=== PATIENT | female | born 1985 | race Caucasian/White ===

== ENCOUNTER → 2016-06-02 | Outpatient (CLI) | payer MEDICAID ==
[~2016-06-02] MED LIST: /ADVA50050 INH; BACT400T PO; Bentyl PO; IMIT50TA PO; IMODIUM AD PO; KEPP500T4 PO; MAGICMW PO; META800T82 PO; MINI1CAP PO; MULTIVIT PO; PREDPOW10 PO; PROZ40CA PO; SKEL800T5 PO; SYNT25TA PO; TOPA25TA PO; VALT500T PO; VANC12CA PO; VICO5TAB PO; XANA0.5T PO; [UNRECOGNIZED DRUG - OTHER]
== END ==
LOC: M OUTALCOH 09:59
PROVIDERS: ATTEND Psychiatry & Neurology Psychiatry
DX: F12.10 Cannabis abuse, uncomplicated (principal)

== ENCOUNTER 2016-06-13 17:28 | Emergency (ER) | payer MEDICAID, OTHER ==
--- NOTE | 2016-06-13 19:50 | REPUSA ---
CLINICAL HISTORY: Pain. COMMENTS: Real time sonography with duplex doppler of the right lower extremity was performed with attention to the major deep venous structures. Evaluation reveals the right common femoral, superficial femoral and popliteal veins to be completely compressible without intraluminal thrombus. There is normal spontaneous phasic flow and augmentation . The greater saphenous/common femoral vein junction is patent. IMPRESSION: No evidence of DVT in right lower extremity. Thank you for your kind referral of this patient.
[2016-06-13] MEDS ORDERED: KETOROLAC 30 MG/ML VIAL (J1885) As Ordered ONE (20:16)
[2016-06-13] MEDS ORDERED: predniSONE 20 MG TAB As Ordered ONE (20:16)
--- NOTE | 2016-06-13 22:31 | EDDOCDS ---
Physician Documentation [facility] Name: Dinora Jimenez Age: 30 yrs Sex: Female : 1985 Arrival Date: 06/13/2016 Time: 17:28 Bed TR7 Private MD: Alva Hobbs Disposition: 06/13 22:07 Critical Care: Critical care not applicable. le Disposition: 06/13/16 22:02 Discharged to Home/Self Care. Impression: Pain in right hip, Pain in right foot. - Condition is Stable. - Discharge Instructions: Arthralgia, Pain Without a Known Cause. - Prescriptions for meloxicam 15 mg Oral tablet - take 1 tablet by ORAL route once daily; 30 tablet. - Work Release Form - 1 day, Medication Reconciliation, Local Pharmacy Hours form. - Follow up: [facility]; When: Call to arrange an appointment; Reason: Recheck today's complaints, Continuance of care. Follow up: [facility]; When: 1 week; Reason: Recheck today's complaints, Continuance of care, If pain is not improving. - Problem is new. - Symptoms have improved. - Notes: Return to the ED for worsening symptoms or other concerns Historical: - Allergies: Ciprofloxacin; - Home Meds: 1. gabapentin 300 mg Oral cap 1 cap 3 times per day 2. Lamictal 100 mg Oral tab 1 tab 2 times per day - PMHx: Bipolar disorder; opiate addiction; ran out of her gabapentin; - PSHx: Hernia repair- Umbilical; ovarian cyst removed - right; Appendectomy; - Social history: Smoking status: Patient uses tobacco products, light tobacco smoker. No barriers to communication noted. - Family history: Not pertinent. - : The pt / caregiver states he / she is not on anticoagulants. Home medication list is obtained from the patient. - Exposure Risk Screening:: None identified. 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 5 in. (165.10 cm) (R); Pain 8/10; 19:38 BP 103 / 57; Pulse 75; Resp 18 S; Temp 96.7(O); Pulse Ox 99% on R/A; Pain 9/10; gr2 22:24 BP 102 / 55; Pulse 58; Resp 16; Pulse Ox 98% ; Pain 4/10; cjh 17:30 Body Mass Index 19.64 (53.52 kg, 165.10 cm) gr2 MDM: 17:51 Misc. Nursing Order ordered. ar2 17:52 US Lower Extremity R/O DVT Ordered. EDMS 19:59 [facility] Payment Agreement was scanned into [employer] and attached to record. gb 20:06 ketorolac 60 mg IM once ordered. le 20:06 predniSONE 60 mg PO once; administer with food or milk ordered. le 20:07 Hip,AP,LAT to include Pelvis Ordered. EDMS 20:27 Financial registration complete. gb Administered Medications: 20:31 Drug: ketorolac 60 mg [ketorolac 30 mg/mL (1 mL) injection solution (2 mL)] Route: IM; ld5 Site: left gluteus; 20:31 Drug: predniSONE 60 mg [prednisone 20 mg tablet (3 tabs)] Route: PO; ld5 Signatures: Dispatcher [employer] EDIA Angela Lee, Reg Reg gb Leatha Parr, COMMERCIAL LOAN PROCESSOR COMMERCIAL LOAN PROCESSOR Tim Rojas PA-C PACarmelina ar2 Xiao Barry,RN RN Karla Gordon RN ld5 The chart was reviewed and I authenticate all verbal orders and agree with the evaluation and treatment provided.Attachments: 19:59 [facility] Payment Agreement gb MTDD
--- NOTE | 2016-06-13 22:31 | EDDOCDS ---
Nurse's Notes [facility] Name: Dinora Jimenez Age: 30 yrs Sex: Female : 1985 Arrival Date: 06/13/2016 Time: 17:28 Bed TR7 Private MD: Alva Hobbs Diagnosis: Pain in right hip;Pain in right foot Presentation: 06/13 17:43 Presenting complaint: Patient states: my right foot is purple and cold and it hurts, my [facility] right hip, I have Lupus, seems to be half in and half out I'm in a lot of pain. Please put in my chart that I'm not seeking opiates of any kind. Adult Sepsis Screening: The patient does not have new or worsening altered mentation. Patient's respiratory rate is less than 22. Systolic blood pressure is greater than 100. Patient has a qSOFA score of 0- Negative Sepsis Screen. Suicide/Homicide risk assessment- the patient denies having any suicidal and/or homicidal ideations and does not present with any other emotional, behavioral or mental health complaints. Status: Patient is not a service crew leader or dependent. Transition of care: patient was not received from another setting of care. 17:43 Acuity: MEENA Level 3 [facility] 17:43 Method Of Arrival: Walkin/Carried/Asstd [facility] Triage Assessment: 17:45 General: Appears distressed, uncomfortable. Pain: Location: right foot Pain currently [facility] is 9 out of 10 on a pain scale. HIV screening NA for this visit Offered previously. Respiratory: Airway is patent Respiratory effort is even, unlabored, Respiratory pattern is regular, symmetrical. Derm: Skin is pink, warm & dry. Musculoskeletal: 19:38 I have visited this patient for a triage reassessment, waiting in wheelchair in waiting dsf area, vital signs reassessed, see vital signs entry. Patient states still in a lot of pain, reassurance offered and informed regarding potential wait time and waiting order. 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 gabapentin 300 mg Oral cap 1 cap 3 times per day 2. Lamictal 100 mg Oral tab 1 tab 2 times per day - PMHx: Bipolar disorder; opiate addiction; ran out of her gabapentin; - PSHx: Hernia repair- Umbilical; ovarian cyst removed - right; Appendectomy; - Social history: Smoking status: Patient uses tobacco products, light tobacco smoker. No barriers to communication noted. - Family history: Not pertinent. - : The pt / caregiver states he / she is not on anticoagulants. Home medication list is obtained from the patient. - Exposure Risk Screening:: None identified. Screenin:24 Screening information is obtained from the patient. Fall risk: No risks identified. [facility] Assistance ADL's: requires no assistance with activities of daily living. Abuse/DV Screen: The patient / caregiver reports he/she is: not in a situation that causes fear, pain or injury. Nutritional screening: No deficits noted. Advance Directives: There is no active DNR order. home support is adequate. Assessment: 18:00 General: doppler pulses of right foot obtained, clear, marked at sites dp and pt . dsf 20:31 General: Pt denies chance of . Pt medicated per orders for pain. Pt assisted ld5 to bathroom. Pt able to move self around well. Returned to room. Awaiting xray. Will continue to monitor. 22:24 General: Appears in no apparent distress, comfortable, Behavior is appropriate for age, [facility] cooperative, reviewed discharge instructions with patient who states she feels much better although still reporting pain 4/10. States she is ready for DC and happy to go home and get some sleep. Denies further needs, assisted to curb via wheelchair. Vital Signs: 17:30 BP 106 / 72; Pulse 65; Resp 18 S; Temp 96.9(O); Pulse Ox 95% on R/A; Weight 53.52 kg gr2 (R); Height 5 ft. 5 in. (165.10 cm) (R); Pain 8/10; 19:38 BP 103 / 57; Pulse 75; Resp 18 S; Temp 96.7(O); Pulse Ox 99% on R/A; Pain 9/10; gr2 22:24 BP 102 / 55; Pulse 58; Resp 16; Pulse Ox 98% ; Pain 4/10; [facility] 17:30 Body Mass Index 19.64 (53.52 kg, 165.10 cm) gr2 Vitals: 17:30 Log In Time: June 13, 2016 at 17:30. gr2 19:38 Log In Time: June 13, 2016 at 19:38. gr2 ED Course: 17:30 Patient visited by Cristal Campbell. gr2 17:30 Alva Hobbs is Private Physician. gr2 17:30 Patient moved to Waiting gr2 17:32 Patient visited by Cristal Campbell. gr2 17:33 Patient moved to Pre RCE gr2 17:45 Triage Initiated cjh 17:50 Patient moved to PD2 / 27 hs1 18:14 Patient moved to Pre RCE jrd 18:18 Patient moved to Ultrasound hgl 18:30 Patient moved to Pre RCE br3 19:40 Patient visited by Cristal Campbell. gr2 19:49 Patient moved to Triage 1 dsf 19:55 Leatha Parr FNP [facility]. le 19:59 [facility] Payment Agreement was scanned into [employer] and attached to record. gb 20:01 Patient visited by Leatha Parr FNP. le 20:01 Patient visited by Leatha Parr FNP. le 20:10 Patient moved to PR2 / ld5 20:23 US Lower Extremity R/O DVT Returned. EDMS 20:32 Patient visited by Karla Arteaga,LEESA. ld5 21:06 Patient moved to Radiology tmb 21:13 Patient moved to PR2 / 26 tmb 22:01 [facility] is Referral Physician. le 22:01 [facility] is Referral Physician. le 22:23 Xiao Barry,LEESA is Primary Nurse. [facility] 22:24 The patient / caregiver is instructed regarding the plan of care and ED course. [facility] 22:24 No IV's were initiated during this patient's visit. No procedures done that require [facility] assistance. 22:26 Patient moved to TR7 dsf Administered Medications: 20:31 Drug: ketorolac 60 mg [ketorolac 30 mg/mL (1 mL) injection solution (2 mL)] Route: IM; ld5 Site: left gluteus; 20:31 Drug: predniSONE 60 mg [prednisone 20 mg tablet (3 tabs)] Route: PO; ld5 Order Results: Radiology Order: US Lower Extremity R/O DVT Test: US Lower Extremity R/O DVT REASON FOR EXAMINATION: r/o dvt; ; CLINICAL HISTORY: Pain.; COMMENTS:; Real time sonography with duplex doppler of the right lower extremity was performed with attention to; the major deep venous structures.; Evaluation reveals the right common femoral, superficial femoral and popliteal veins to be completely; compressible without intraluminal thrombus. There is normal spontaneous phasic flow and augmentation; . The greater saphenous/common femoral vein junction is patent.; IMPRESSION:; No evidence of DVT in right lower extremity.; Thank you for your kind referral of this patient.; ; Outcome: 22:02 Discharge ordered by Provider. le 22:24 Discharge Assessment: Patient awake, alert and oriented x 3. No cognitive and/or [facility] functional deficits noted. Patient verbalized understanding of disposition instructions. patient administered narcotics - no. The following High Risk Discharge criteria are identified: None. Discharged to home ambulatory, via wheelchair. Condition: good Condition: stable Condition: improved. Discharge instructions given to patient, Instructed on discharge instructions, follow up and referral plans. medication usage, Demonstrated understanding of instructions, medications, Pt was receptive of discharge instructions/ teaching. Prescriptions given X 1. Ultrasound Study completed. Property :Personal belongings accompany Pt. 22:30 Patient left the ED. [facility] Signatures: Dispatcher [employer] EDMS Angela Lee, Reg Reg gb Leatha Parr, MARBLE MECHANIC HELPER MARBLE MECHANIC HELPER Miriam Pitts br3 Karla Arteaga,RN RN ld5 Laurie Moses RN RN hs1 Nisha Hicks RN RN Xiao Bee RN RN [facility] Ly, Cr hgl Cristal Campbell gr2 [employer] Joseph, PCA HAT CHECKER jrfrank Corrections: (The following items were deleted from the chart) 17:46 17:43 Presenting complaint: Patient states: my right foot is purple and cold and it [facility] hurts, my right hip, I have Lupus, seems to be half in and half out I'm in a lot of pain [facility] MTDD
--- NOTE | 2016-06-14 01:54 | REP ---
Clinical: Trauma. Technique: AP view of the pelvis with neutral and frog lateral views of the right hip. Findings: No acute fracture or dislocation. Hip joints appear relatively symmetric. Surrounding soft tissues are unremarkable. Impression: No acute fracture or dislocation. Signed by George Vaca MD 06/14/2016 01:45 A
--- NOTE | 2016-06-15 23:31 | EDDOCDS ---
Nurse's Notes [facility] Name: Dinora Jimenez Age: 30 yrs Sex: Female : 1985 Arrival Date: 06/13/2016 Time: 17:28 Bed TR7 Private MD: Alva Hobbs Diagnosis: Pain in right hip;Pain in right foot Presentation: 06/13 17:43 Presenting complaint: Patient states: my right foot is purple and cold and it hurts, my [facility] right hip, I have Lupus, seems to be half in and half out I'm in a lot of pain. Please put in my chart that I'm not seeking opiates of any kind. Adult Sepsis Screening: The patient does not have new or worsening altered mentation. Patient's respiratory rate is less than 22. Systolic blood pressure is greater than 100. Patient has a qSOFA score of 0- Negative Sepsis Screen. Suicide/Homicide risk assessment- the patient denies having any suicidal and/or homicidal ideations and does not present with any other emotional, behavioral or mental health complaints. 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 Transition of care: patient was not received from another setting of care. 17:43 Acuity: MEENA Level 3 [facility] 17:43 Method Of Arrival: Walkin/Carried/Asstd [facility] Triage Assessment: 17:45 General: Appears distressed, uncomfortable. Pain: Location: right foot Pain currently [facility] is 9 out of 10 on a pain scale. HIV screening NA for this visit Offered previously. Respiratory: Airway is patent Respiratory effort is even, unlabored, Respiratory pattern is regular, symmetrical. Derm: Skin is pink, warm & dry. Musculoskeletal: 19:38 I have visited this patient for a triage reassessment, waiting in wheelchair in waiting dsf area, vital signs reassessed, see vital signs entry. Patient states still in a lot of pain, reassurance offered and informed regarding potential wait time and waiting order. 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 gabapentin 300 mg Oral cap 1 cap 3 times per day 2. Lamictal 100 mg Oral tab 1 tab 2 times per day - PMHx: Bipolar disorder; opiate addiction; ran out of her gabapentin; - PSHx: Hernia repair- Umbilical; ovarian cyst removed - right; Appendectomy; - Social history: Smoking status: Patient uses tobacco products, light tobacco smoker. No barriers to communication noted. - Family history: Not pertinent. - : The pt / caregiver states he / she is not on anticoagulants. Home medication list is obtained from the patient. - Exposure Risk Screening:: None identified. Screenin:24 Screening information is obtained from the patient. Fall risk: No risks identified. [facility] Assistance ADL's: requires no assistance with activities of daily living. Abuse/DV Screen: The patient / caregiver reports he/she is: not in a situation that causes fear, pain or injury. Nutritional screening: No deficits noted. Advance Directives: There is no active DNR order. home support is adequate. Assessment: 18:00 General: doppler pulses of right foot obtained, clear, marked at sites dp and pt . dsf 20:31 General: Pt denies chance of . Pt medicated per orders for pain. Pt assisted ld5 to bathroom. Pt able to move self around well. Returned to room. Awaiting xray. Will continue to monitor. 22:24 General: Appears in no apparent distress, comfortable, Behavior is appropriate for age, [facility] cooperative, reviewed discharge instructions with patient who states she feels much better although still reporting pain 4/10. States she is ready for DC and happy to go home and get some sleep. Denies further needs, assisted to curb via wheelchair. Vital Signs: 17:30 BP 106 / 72; Pulse 65; Resp 18 S; Temp 96.9(O); Pulse Ox 95% on R/A; Weight 53.52 kg gr2 (R); Height 5 ft. 5 in. (165.10 cm) (R); Pain 8/10; 19:38 BP 103 / 57; Pulse 75; Resp 18 S; Temp 96.7(O); Pulse Ox 99% on R/A; Pain 9/10; gr2 22:24 BP 102 / 55; Pulse 58; Resp 16; Pulse Ox 98% ; Pain 4/10; [facility] 17:30 Body Mass Index 19.64 (53.52 kg, 165.10 cm) gr2 Vitals: 17:30 Log In Time: June 13, 2016 at 17:30. gr2 19:38 Log In Time: June 13, 2016 at 19:38. gr2 ED Course: 17:30 Patient visited by Cristal Campbell. gr2 17:30 Alva Hobbs is Private Physician. gr2 17:30 Patient moved to Waiting gr2 17:32 Patient visited by Cristal Campbell. gr2 17:33 Patient moved to Pre RCE gr2 17:45 Triage Initiated cjh 17:50 Patient moved to PD2 / 27 hs1 18:14 Patient moved to Pre RCE jrd 18:18 Patient moved to Ultrasound hgl 18:30 Patient moved to Pre RCE br3 19:40 Patient visited by Cristal Campbell. gr2 19:49 Patient moved to Triage 1 dsf 19:55 Leatha Parr FNP is [facility]. le 19:59 [facility] Payment Agreement was scanned into [employer] and attached to record. gb 20:01 Patient visited by Leatha Parr FNP. le 20:01 Patient visited by Leatha Parr FNP. le 20:10 Patient moved to PR2 / ld5 20:23 Lower Extremity R/O DVT Returned. EDMS 20:32 Patient visited by Karla Arteaga,LEESA. ld5 21:06 Patient moved to Radiology tmb 21:13 Patient moved to PR2 / 26 tmb 22:01 [facility] is Referral Physician. le 22:01 [facility] is Referral Physician. le 22:23 Xiao Barry,LEESA is Primary Nurse. [facility] 22:24 The patient / caregiver is instructed regarding the plan of care and ED course. [facility] 22:24 No IV's were initiated during this patient's visit. No procedures done that require [facility] assistance. 22:26 Patient moved to TR7 dsf 02 02:04 Hip,AP,LAT to include Pelvis Returned. EDMS 10:48 T-Sheet-- Draft Copy was scanned into [employer] and attached to record. gb 10:48 Radiology Report was scanned into [employer] and attached to record. gb Administered Medications: 06/13 20:31 Drug: ketorolac 60 mg [ketorolac 30 mg/mL (1 mL) injection solution (2 mL)] Route: IM; ld5 Site: left gluteus; 20:31 Drug: predniSONE 60 mg [prednisone 20 mg tablet (3 tabs)] Route: PO; ld5 Order Results: Radiology Order: US Lower Extremity R/O DVT Test: US Lower Extremity R/O DVT REASON FOR EXAMINATION: r/o dvt; ; CLINICAL HISTORY: Pain.; COMMENTS:; Real time sonography with duplex doppler of the right lower extremity was performed with attention to; the major deep venous structures.; Evaluation reveals the right common femoral, superficial femoral and popliteal veins to be completely; compressible without intraluminal thrombus. There is normal spontaneous phasic flow and augmentation; . The greater saphenous/common femoral vein junction is patent.; IMPRESSION:; No evidence of DVT in right lower extremity.; Thank you for your kind referral of this patient.; ; Radiology Order: Hip,AP,LAT to include Pelvis Test: Hip,AP,LAT to include Pelvis REASON FOR EXAMINATION: Trauma; Clinical: Trauma.; ; Technique: AP view of the pelvis with neutral and frog lateral views of the; right hip.; ; Findings:; No acute fracture or dislocation. Hip joints appear relatively symmetric.; Surrounding soft tissues are unremarkable.; ; Impression:; No acute fracture or dislocation.; ; ; Signed by; George Vaca MD 06/14/2016 01:45 A; Outcome: 22:02 Discharge ordered by Provider. le 22:24 Discharge Assessment: Patient awake, alert and oriented x 3. No cognitive and/or [facility] functional deficits noted. Patient verbalized understanding of disposition instructions. patient administered narcotics - no. The following High Risk Discharge criteria are identified: None. Discharged to home ambulatory, via wheelchair. Condition: good Condition: stable Condition: improved. Discharge instructions given to patient, Instructed on discharge instructions, follow up and referral plans. medication usage, Demonstrated understanding of instructions, medications, Pt was receptive of discharge instructions/ teaching. Prescriptions given X 1. Ultrasound Study completed. Property :Personal belongings accompany Pt. 22:30 Patient left the ED. [facility] Signatures: Dispatcher [employer] EDMS Angela Lee, Reg Reg gb Leatha Parr, CORD MAKER CORD MAKER Miriam Pitts br3 Karla rAteaga RN RN ld5 Laurie Moses RN RN hs1 Nisha Hicks RN RN dsf Xiao Barry RN RN cjh Ly, Cr hgl Adrian Cristal gr2 [employer] [facility] Joseph, CLARA SPA ASSISTANT MANAGER jrd Corrections: (The following items were deleted from the chart) 17:46 17:43 Presenting complaint: Patient states: my right foot is purple and cold and it cjh hurts, my right hip, I have Lupus, seems to be half in and half out I'm in a lot of pain cj Chart Complete MTDD
--- NOTE | 2016-06-15 23:31 | EDDOCDS ---
Physician Documentation [facility] Name: Dinora Jimenez Age: 30 yrs Sex: Female : 1985 Arrival Date: 06/13/2016 Time: 17:28 Bed TR7 Private MD: Alva Hobbs Disposition: 06/13 22:07 Critical Care: Critical care not applicable. le Disposition: 06/13/16 22:02 Discharged to Home/Self Care. Impression: Pain in right hip, Pain in right foot. - Condition is Stable. - Discharge Instructions: Arthralgia, Pain Without a Known Cause. - Prescriptions for meloxicam 15 mg Oral tablet - take 1 tablet by ORAL route once daily; 30 tablet. - Work Release Form - 1 day, Medication Reconciliation, Local Pharmacy Hours form. - Follow up: [facility]; When: Call to arrange an appointment; Reason: Recheck today's complaints, Continuance of care. Follow up: [facility]; When: 1 week; Reason: Recheck today's complaints, Continuance of care, If pain is not improving. - Problem is new. - Symptoms have improved. - Notes: Return to the ED for worsening symptoms or other concerns Historical: - Allergies: Ciprofloxacin; - Home Meds: 1. gabapentin 300 mg Oral cap 1 cap 3 times per day 2. Lamictal 100 mg Oral tab 1 tab 2 times per day - PMHx: Bipolar disorder; opiate addiction; ran out of her gabapentin; - PSHx: Hernia repair- Umbilical; ovarian cyst removed - right; Appendectomy; - Social history: Smoking status: Patient uses tobacco products, light tobacco smoker. No barriers to communication noted. - Family history: Not pertinent. - : The pt / caregiver states he / she is not on anticoagulants. Home medication list is obtained from the patient. - Exposure Risk Screening:: None identified. 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 5 in. (165.10 cm) (R); Pain 8/10; 19:38 BP 103 / 57; Pulse 75; Resp 18 S; Temp 96.7(O); Pulse Ox 99% on R/A; Pain 9/10; gr2 22:24 BP 102 / 55; Pulse 58; Resp 16; Pulse Ox 98% ; Pain 4/10; cjh 17:30 Body Mass Index 19.64 (53.52 kg, 165.10 cm) gr2 MDM: 17:51 Misc. Nursing Order ordered. ar2 17:52 US Lower Extremity R/O DVT Ordered. EDMS 19:59 [facility] [place] Payment Agreement was scanned into [employer] and attached to record. gb 20:06 ketorolac 60 mg IM once ordered. le 20:06 predniSONE 60 mg PO once; administer with food or milk ordered. le 20:07 Hip,AP,LAT to include Pelvis Ordered. EDMS 20:27 Financial registration complete. gb 06/14 10:48 T-Sheet-- Draft Copy was scanned into [employer] and attached to record. gb 10:48 Radiology Report was scanned into [employer] and attached to record. gb Administered Medications: 06/13 20:31 Drug: ketorolac 60 mg [ketorolac 30 mg/mL (1 mL) injection solution (2 mL)] Route: IM; ld5 Site: left gluteus; 20:31 Drug: predniSONE 60 mg [prednisone 20 mg tablet (3 tabs)] Route: PO; ld5 Signatures: Dispatcher [employer] EDAL Angela Lee, Reg Reg gb Leatha Parr, PASTER SUPERVISOR PASTER SUPERVISOR Tim Rojas PA-C PA-C ar2 Xiao Barry RN RN [facility] Karla Arteaga RN ld5 The chart was reviewed and I authenticate all verbal orders and agree with the evaluation and treatment provided.Attachments: 19:59 [facility] Payment Agreement gb 06/14 10:48 T-Sheet-- Draft Copy gb Chart Complete MTDD
--- NOTE | 2016-06-15 23:31 | EDDOCDS ---
Physician Documentation [facility] Name: Dinora Jimenez Age: 30 yrs Sex: Female : 1985 Arrival Date: 06/13/2016 Time: 17:28 Bed TR7 Private MD: Alva Hobbs Disposition: 06/13 22:07 Critical Care: Critical care not applicable. le Disposition: 06/13/16 22:02 Discharged to Home/Self Care. Impression: Pain in right hip, Pain in right foot. - Condition is Stable. - Discharge Instructions: Arthralgia, Pain Without a Known Cause. - Prescriptions for meloxicam 15 mg Oral tablet - take 1 tablet by ORAL route once daily; 30 tablet. - Work Release Form - 1 day, Medication Reconciliation, Local Pharmacy Hours form. - Follow up: [facility]; When: Call to arrange an appointment; Reason: Recheck today's complaints, Continuance of care. Follow up: [facility]; When: 1 week; Reason: Recheck today's complaints, Continuance of care, If pain is not improving. - Problem is new. - Symptoms have improved. - Notes: Return to the ED for worsening symptoms or other concerns Historical: - Allergies: Ciprofloxacin; - Home Meds: 1. gabapentin 300 mg Oral cap 1 cap 3 times per day 2. Lamictal 100 mg Oral tab 1 tab 2 times per day - PMHx: Bipolar disorder; opiate addiction; ran out of her gabapentin; - PSHx: Hernia repair- Umbilical; ovarian cyst removed - right; Appendectomy; - Social history: Smoking status: Patient uses tobacco products, light tobacco smoker. No barriers to communication noted. - Family history: Not pertinent. - : The pt / caregiver states he / she is not on anticoagulants. Home medication list is obtained from the patient. - Exposure Risk Screening:: None identified. 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 5 in. (165.10 cm) (R); Pain 8/10; 19:38 BP 103 / 57; Pulse 75; Resp 18 S; Temp 96.7(O); Pulse Ox 99% on R/A; Pain 9/10; gr2 22:24 BP 102 / 55; Pulse 58; Resp 16; Pulse Ox 98% ; Pain 4/10; cjh 17:30 Body Mass Index 19.64 (53.52 kg, 165.10 cm) gr2 MDM: 17:51 Misc. Nursing Order ordered. ar2 17:52 US Lower Extremity R/O DVT Ordered. EDMS 19:59 [facility] [place] Payment Agreement was scanned into [employer] and attached to record. gb 20:06 ketorolac 60 mg IM once ordered. le 20:06 predniSONE 60 mg PO once; administer with food or milk ordered. le 20:07 Hip,AP,LAT to include Pelvis Ordered. EDMS 20:27 Financial registration complete. gb 06/14 10:48 T-Sheet-- Draft Copy was scanned into [employer] and attached to record. gb 10:48 Radiology Report was scanned into [employer] and attached to record. gb Administered Medications: 06/13 20:31 Drug: ketorolac 60 mg [ketorolac 30 mg/mL (1 mL) injection solution (2 mL)] Route: IM; ld5 Site: left gluteus; 20:31 Drug: predniSONE 60 mg [prednisone 20 mg tablet (3 tabs)] Route: PO; ld5 Signatures: Dispatcher [employer] EDMT Angela Lee, Reg Reg gb Leatha Parr, LITERARY WRITER LITERARY WRITER Tim Rojas PA-C PA-C ar2 Xiao Barry RN RN [facility] Karla Arteaga RN ld5 The chart was reviewed and I authenticate all verbal orders and agree with the evaluation and treatment provided.Attachments: 19:59 [facility] Payment Agreement gb 06/14 10:48 T-Sheet-- Draft Copy gb Chart Complete MTDD
== END 2016-06-13 22:30 | disposition home or self-care (01) ==
LOC: M ED 17:28
DX: S73.101A Unspecified sprain of right hip, initial encounter (principal); X58.XXXA Exposure to other specified factors, initial encounter; Y92.89 Other specified places as the place of occurrence of the external cause; Y93.89 Activity, other specified; Y99.8 Other external cause status; M79.671 Pain in right foot; F31.9 Bipolar disorder, unspecified; F11.10 Opioid abuse, uncomplicated; F17.210 Nicotine dependence, cigarettes, uncomplicated; Z79.899 Other long term (current) drug therapy; Z88.1 Allergy status to other antibiotic agents
CPT/HCPCS: 73502; 93971; 96372; 99284; J1885

== ENCOUNTER → 2016-06-13 | Outpatient (RCR) | payer MEDICAID | END | disposition home or self-care (01) | LOC: M OUTALCOH 06-08 11:47 | PROVIDERS: ATTEND Psychiatry & Neurology Psychiatry | DX: F12.10 Cannabis abuse, uncomplicated (principal); F17.200 Nicotine dependence, unspecified, uncomplicated ==

== ENCOUNTER → 2016-07-11 | Outpatient (RCR) | payer MEDICAID ==
[~2016-07-11] MED LIST changes: +GABA600T PO; +LAMI1TAB8 PO; +MACR100C3 PO; +TYLE325T5 PO; +ZOFR4TAB3 PO
== END ==
LOC: M OUTALCOH 06-20 10:37
PROVIDERS: ATTEND Psychiatry & Neurology Psychiatry
DX: F12.10 Cannabis abuse, uncomplicated (principal); F17.200 Nicotine dependence, unspecified, uncomplicated

== ENCOUNTER 2016-07-13 15:03 | Emergency (ER) | payer OTHER ==
[~2016-07-13] VITALS: Ht 162.6 cm; Wt 56.7 kg
[~2016-07-13 15:03] MED LIST changes: -GABA600T PO; -LAMI1TAB8 PO; -MACR100C3 PO; -TYLE325T5 PO; -ZOFR4TAB3 PO
[2016-07-13] MEDS ORDERED: LAMI1TAB8 PO (15:27)
[2016-07-13] MEDS ORDERED: GABA600T PO (15:27)
[2016-07-13] MEDS ORDERED: ONDANSETRON 4 MG ORAL DISINTEGRATING TAB (S0181) PO ONE (16:30)
[2016-07-13 17:04] LABS: BASO % 0.5 % (0.0-1.0); EOS # 0.1 K/mm3 (0.0-0.50); EOS % 1.4 % (0.0-3.0); LARGE UNSTAINED CELL # 0.2 K/mm3 (0.0-0.4); LARGE UNSTAINED CELL % 2.3 % (0.0-4.0); LYMPH # 2.2 K/mm3 (1.5-4.5); LYMPH % 32.3 % (24.0-44.0); MEAN CORPUSCULAR HEMOGLOBIN 30.2 pg (27.0-33.0); MEAN CORPUSCULAR HGB CONC 33.1 g/dl (32.0-36.5); MEAN CORPUSCULAR VOLUME 91.1 fl (80.0-96.0); MONO # 0.3 K/mm3 (0.0-0.8); NEUTROPHILS % 58.6 % (36.0-66.0); PLATELET COUNT, AUTOMATED 187 k/mm3 (150-450); RED CELL DISTRIBUTION WIDTH 12.4 % (11.5-14.5); WHITE BLOOD COUNT 6.8 K/mm3 (4.0-10.0)
[2016-07-13 17:20] LABS: ALBUMIN 4.1 GM/DL (3.2-5.2); ALBUMIN/GLOBULIN RATIO 1.71 (1.00-1.93); ALKALINE PHOSPHATASE 64 U/L (45-117); ALT/SGPT 14 U/L (12-78); ANION GAP 6 MEQ/L (8-16); AST/SGOT 15 U/L (15-37); BILIRUBIN,DIRECT 0.2 MG/DL (0.0-0.2); BILIRUBIN,TOTAL 0.4 MG/DL (0.2-1.0); BLOOD UREA NITROGEN 11 MG/DL (7-18); CALCIUM LEVEL 8.9 MG/DL (8.5-10.1); CARBON DIOXIDE LEVEL 28 MEQ/L (21-32); CHLORIDE LEVEL 105 MEQ/L (98-107); CREATININE FOR GFR 0.79 MG/DL (0.55-1.02); GLOMERULAR FILTRATION RATE > 60.0 (>60); GLUCOSE, FASTING 81 MG/DL (70-105); POTASSIUM SERUM 4.2 MEQ/L (3.5-5.1); SODIUM LEVEL 139 MEQ/L (136-145); TOTAL PROTEIN 6.5 GM/DL (6.4-8.2)
--- NOTE | 2016-07-13 17:59 | REP ---
OB ULTRASOUND: HISTORY: Vaginal pain. No priors for comparison. Transvesical and transvaginal imaging was obtained. Multiple sonographic images of the uterus show an anechoic structure within the endometrial cavity with increased echo surrounding it consistent with a decidual reaction. Within the gestational sac there is a small anechoic structure consistent with a yolk sac. Echogenic material is also present consistent with a pole, the mean crown rump length measurement of which is consistent with a 5 weeks 6 days gestational age. This renders the estimated date of delivery to be 03/09/2017. The maternal adnexal spaces were normal. Doppler interrogation of the pole showed a heart rate of 95 beats per minute. No evidence of a chorionic or subchorionic abnormality. IMPRESSION: Early OB ultrasound as described above. Signed by Joseph Gomez DO 07/13/2016 06:15 P
[2016-07-13] MEDS ORDERED: MACR100C3 PO (18:08)
[2016-07-13] MEDS ORDERED: ZOFR4TAB3 PO (18:08)
[2016-07-13] MEDS ORDERED: TYLE325T5 PO (18:08)
[2016-07-13 18:17] VITALS: BP 121/66
== END 2016-07-13 18:21 | disposition home or self-care (01) ==
LOC: M ED 17:27
DX: O26.891 Other specified pregnancy related conditions, first trimester (principal); N83.02 Follicular cyst of left ovary; O23.41 Unspecified infection of urinary tract in pregnancy, first trimester; Z3A.01 Less than 8 weeks gestation of pregnancy; O99.511 Diseases of the respiratory system complicating pregnancy, first trimester; J45.909 Unspecified asthma, uncomplicated; O99.89 Other specified diseases and conditions complicating pregnancy, childbirth and the puerperium; M79.7 Fibromyalgia; Z79.899 Other long term (current) drug therapy; Z88.1 Allergy status to other antibiotic agents; Z91.040 Latex allergy status; O99.331 Smoking (tobacco) complicating pregnancy, first trimester; F17.210 Nicotine dependence, cigarettes, uncomplicated

== ENCOUNTER 2016-07-27 12:11 | Emergency (ER) | payer OTHER ==
[~2016-07-27] VITALS: Ht 162.6 cm; Wt 58.1 kg
[~2016-07-27 12:11] MED LIST changes: +GABA600T PO; +LAMI1TAB8 PO; +MACR100C3 PO; +TYLE325T5 PO; +ZOFR4TAB3 PO
[2016-07-27] MEDS ORDERED: MORPHINE 2 MG/ML 1ML SYRINGE IV ONE (12:45)
[2016-07-27 13:28] LABS: BASO % 0.3 % (0.0-1.0); EOS % 0.5 % (0.0-3.0); LARGE UNSTAINED CELL # 0.1 K/mm3 (0.0-0.4); LARGE UNSTAINED CELL % 1.7 % (0.0-4.0); LYMPH # 1.1 K/mm3 (1.5-4.5); LYMPH % 17.9 % (24.0-44.0); MEAN CORPUSCULAR HEMOGLOBIN 30.9 pg (27.0-33.0); MEAN CORPUSCULAR HGB CONC 33.7 g/dl (32.0-36.5); MEAN CORPUSCULAR VOLUME 91.5 fl (80.0-96.0); MONO # 0.3 K/mm3 (0.0-0.8); MONO % 5.1 % (0.0-5.0); NEUTROPHILS # 4.7 K/mm3 (1.8-7.7); NEUTROPHILS % 74.4 % (36.0-66.0); PLATELET COUNT, AUTOMATED 161 k/mm3 (150-450); RED CELL DISTRIBUTION WIDTH 12.7 % (11.5-14.5); WHITE BLOOD COUNT 6.4 K/mm3 (4.0-10.0)
[2016-07-27] MEDS ORDERED: ONDANSETRON 4MG/2ML VIAL (J2405) IV ONE (14:00)
[2016-07-27] MEDS: NS 1,000 ML IV SCH ×2 (14:09→15:45)
[2016-07-27 14:20] LABS: HCG, SERUM QUANTITATIVE 72680 MIU/ML
[2016-07-27 14:48] LABS: ANION GAP 9 MEQ/L (8-16); BLOOD UREA NITROGEN 12 MG/DL (7-18); CALCIUM LEVEL 8.3 MG/DL (8.5-10.1); CARBON DIOXIDE LEVEL 24 MEQ/L (21-32); CHLORIDE LEVEL 109 MEQ/L (98-107); CREATININE FOR GFR 0.65 MG/DL (0.55-1.02); GLOMERULAR FILTRATION RATE > 60.0 (>60); GLUCOSE, FASTING 76 MG/DL (70-105); POTASSIUM SERUM 3.5 MEQ/L (3.5-5.1); SODIUM LEVEL 142 MEQ/L (136-145)
[2016-07-27 14:49] LABS: ALBUMIN 3.7 GM/DL (3.2-5.2); ALBUMIN/GLOBULIN RATIO 1.42 (1.00-1.93); ALKALINE PHOSPHATASE 51 U/L (45-117); ALT/SGPT 12 U/L (12-78); AST/SGOT 14 U/L (15-37); BILIRUBIN,DIRECT 0.2 MG/DL (0.0-0.2); BILIRUBIN,TOTAL 0.6 MG/DL (0.2-1.0); TOTAL PROTEIN 6.3 GM/DL (6.4-8.2)
--- NOTE | 2016-07-27 15:08 | REP ---
FIRST TRIMESTER OB ULTRASOUND: 07/27/2016 CLINICAL HISTORY: Pelvic pain. Positive test. TECHNIQUE: Transabdominal images were obtained and compared to the study from 07/13/2016. FINDINGS: The uterus is again retroverted. There is a gestational sac in the body and fundus of the uterus. There is a pole with crown-rump length of 1.9 cm correspond 8 weeks 3 days with EDC 03/05/2017. By LMP she has an EDC of 03/04/2017. heart activity noted at 160 beats per minute. No subchorionic bleed. There is a trace amount of free fluid in the cul-de-sac near the fundus. Non-fused amnion is seen, which is a normal finding at this stage of . Adnexal regions could not be observed in the study with abundant gas shadowing. IMPRESSION: 1. Retroverted uterus with gestational sac in the body and fundus and with a pole having a crown-rump length of 1.9 cm giving 8 weeks 3 days and EDC of 03/05/2017. 2. The heart rate is 160 without subchorionic bleed. No visible adnexal mass but ovaries are not seen on either side of extensive gas shadowing. 3. Trace free fluid in the cul-de-sac adjacent to the uterine fundus. Signed by Abhilash Gavin MD 07/27/2016 04:19 P
--- NOTE | 2016-07-27 15:15 | REP ---
AP PELVIS WITH RIGHT HIP: 07/27/2016 COMPARISON: 06/13/2016 CLINICAL HISTORY: Trauma. Technologist notes. The patient and her ordering ED physician aware of her 10-week . The patient aware of the risks of radiation. She will continue with examination. A gonadal shield is used on the right hip images to some effect, but cannot be used on AP pelvis. Pelvic ring intact. SI joints preserved. Sacral ala and foramina preserved. There is no visible or displaced fracture of the iliac wings, acetabuli, symphysis pubis and pubic rami. The hips show symmetric joint spaces without AVN, fracture or focal lesion. The dedicated right hip views show no fracture, joint space narrowing, avulsion or significant degenerative change. IMPRESSION: 1. No visible or displaced fracture, focal bone lesion, degenerative change or other acute finding in the pelvis and right hip. Signed by Abhilash Gavin MD 07/27/2016 04:19 P
--- NOTE | 2016-07-27 15:17 | REP ---
RIGHT FEMUR SERIES, COMPLETE 07/27/2016 CLINICAL HISTORY: Trauma. Blunt trauma to the lateral aspect of the hip and proximal femur. Patient aware of as is her physician and they wish to continue. AP and lateral views are reviewed in conjunction with the hip series this date. There is no fracture of the femoral shaft. The hip and distal femur show no fracture or focal bone lesion. No evidence of a joint effusion about the knee. No radiopaque foreign body, avulsion or other acute finding. IMPRESSION: 1. Negative right femur series for fracture, focal bone lesion, radiopaque foreign body or other acute finding. Signed by Abhilash Gavin MD 07/27/2016 04:20 P
[2016-07-27 15:42] VITALS: BP 118/68
--- NOTE | 2016-07-28 08:46 | ECGEPIP ---
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
== END 2016-07-27 15:47 | disposition home or self-care (01) ==
LOC: EDBD 12:11 → M ED 14:20
DX: O9A.211 Injury, poisoning and certain other consequences of external causes complicating pregnancy, first trimester (principal); S70.01XA Contusion of right hip, initial encounter; Z3A.10 10 weeks gestation of pregnancy; Y04.8XXA Assault by other bodily force, initial encounter; Y93.9 Activity, unspecified; Y92.096 Garden or yard of other non-institutional residence as the place of occurrence of the external cause; Y99.9 Unspecified external cause status; F41.9 Anxiety disorder, unspecified; F31.9 Bipolar disorder, unspecified; M32.9 Systemic lupus erythematosus, unspecified; Z88.1 Allergy status to other antibiotic agents; Z91.040 Latex allergy status; Z79.899 Other long term (current) drug therapy; O99.331 Smoking (tobacco) complicating pregnancy, first trimester; F17.210 Nicotine dependence, cigarettes, uncomplicated
CPT/HCPCS: 36415; 73502; 73552; 76801; 80048; 80076; 81001; 83690; 84702; 85025; 86850; 86900; 86901; 87086; 87210; 87491; 87591; 93005; 93041; 94760; 96361; 96374; 96375; 99285; J2405

== ENCOUNTER 2016-08-09 11:00 | Outpatient (RCR) | payer OTHER ==
[2016-08-13] MEDS ORDERED: CELE-19 PO (15:22)
[2016-08-13] MEDS ORDERED: PAXI10TA2 PO (15:22)
[2016-08-13] MEDS ORDERED: DOXY100C37 PO (20:51)
[2016-08-13] MEDS ORDERED: CYTO1TAB PO (20:53)
[2016-08-13] MEDS ORDERED: TYLETAB14 PO (21:06)
[2016-08-15] MEDS ORDERED: DOXY100T PO (18:05)
[2016-08-15] MEDS ORDERED: TYLETAB14 PO (18:05)
[2016-08-15] MEDS ORDERED: LAMO100T PO (18:05)
[2016-08-15] MEDS ORDERED: BUDE180INH INH (18:07)
[2016-08-15] MEDS ORDERED: IBUP800T23 PO (18:07)
[2016-08-15] MEDS ORDERED: HYDR25T PO (18:07)
[2016-08-15] MEDS ORDERED: GABA300C3 PO (18:07)
[2016-08-15] MEDS ORDERED: OXYC1TAB23 PO (19:16)
[2016-08-15] MEDS ORDERED: IBUP600T26 PO (19:18)
== END 2016-08-11 ==
LOC: M OUTALCOH 11:00
PROVIDERS: ATTEND Psychiatry & Neurology Psychiatry
DX: F12.10 Cannabis abuse, uncomplicated (principal); F17.200 Nicotine dependence, unspecified, uncomplicated

== ENCOUNTER → 2016-08-15 | Day surgery (SDC) | payer OTHER ==
[~2016-08-15] VITALS: Ht 162.6 cm; Wt 59.0 kg
[~2016-08-15] MED LIST changes: +BUDE180INH INH; +CELE-19 PO; +CYTO1TAB PO; +DOXY100C37 PO; +DOXY100T PO; +DOXYCYCLINE HYCLATE 100 MG in D5W MINI-BAG PLUS 100 ML IV ONE; +DOXYCYCLINE HYCLATE 100 MG/10 ML VIAL As Ordered ONE; +GABA-282 PO; +HYDR25T PO; +IBUP600T26 PO; +IBUP800T23 PO; +KETOROLAC 60 MG/2 ML VIAL (J1885) As Ordered ONE; +KETOROLAC 60 MG/2 ML VIAL (J1885) IM ONE; +LAMO100T PO; +LIDOCAINE 2% INJ 100 MG/5 ML SDV (FOR ANES.) As Ordered ONE; +LR 1,000 ML IV SCH; +METOCLOPRAMIDE INJ 10MG/2ML VIAL (J2765) As Ordered ONE; +MIDAZOLAM INJ 2 MG/2 ML VIAL (J2250) As Ordered ONE; +MORPHINE 10 MG/ML 1ML VIAL As Ordered ONE; +MORPHINE 10 MG/ML 1ML VIAL IV ONE; +MORPHINE 4 MG/ML 1ML SYRINGE IV ONE; +ONDANSETRON 4 MG ORAL DISINTEGRATING TAB (S0181) PO ONE; +ONDANSETRON 4MG/2ML VIAL (J2405) As Ordered ONE; +ONDANSETRON 4MG/2ML VIAL (J2405) IV ONE; +ONDANSETRON 4MG/2ML VIAL (J2405) IV PRN; +OXYC1TAB23 PO; +PAXI10TA2 PO; +PROPOFOL 200 MG/20 ML VIAL As Ordered ONE; +ROCURONIUM BROMIDE 50 MG/5 ML VIAL As Ordered ONE; +SEVOFLURANE INHAL SOLN 250 ML BTL As Ordered ONE; +SILVER NITRATE APPLICATOR As Ordered ONE; +TYLETAB14 PO; +diphenhydrAMINE 25 MG CAP PO ONE; +fentaNYL 100 MCG/2 ML INJECTION (J3010) As Ordered ONE; +fentaNYL 100 MCG/2 ML INJECTION (J3010) IV PRN
--- NOTE | 2016-08-15 17:15 | REP ---
PELVIC ULTRASOUND: Real-time sonographic evaluation of the pelvis performed utilizing transabdominal and endovaginal technique. The bladder measures 7.1 x 3.5 x 8.7 cm. The uterus measures 8.8 x 4.8 x 5.7 cm. Endometrial thickness is 16 mm, with heterogeneous echotexture and somewhat irregular margins. There is increased blood flow within the endometrial echo complex. Findings are again suspicious for retained products of conception. Right ovary measures 2.3 x 1.1 x 1.8 cm and left ovary 2.1 x 1.4 x 2.7 cm. Small complex cystic structure left ovary measures 1.2 cm in diameter. Blood flow is seen in each ovary with duplex Doppler evaluation, with no torsion, RI right ovary 0.54 and left ovary 0.48. I do not see significant free fluid. IMPRESSION: Findings again suggestive of retained products of conception as discussed in detail above. Findings are similar to the prior exam of 08/13/2016. Signed by Derrick Anthony MD 08/16/2016 08:35 A
[2016-08-15 17:57] LABS: BASO % 0.5 % (0.0-1.0); EOS # 0.1 K/mm3 (0.0-0.50); LARGE UNSTAINED CELL # 0.1 K/mm3 (0.0-0.4); LARGE UNSTAINED CELL % 1.7 % (0.0-4.0); LYMPH # 2.3 K/mm3 (1.5-4.5); LYMPH % 32.1 % (24.0-44.0); MEAN CORPUSCULAR HEMOGLOBIN 30.7 pg (27.0-33.0); MEAN CORPUSCULAR HGB CONC 33.2 g/dl (32.0-36.5); MEAN CORPUSCULAR VOLUME 92.5 fl (80.0-96.0); MONO # 0.3 K/mm3 (0.0-0.8); MONO % 4.7 % (0.0-5.0); PLATELET COUNT, AUTOMATED 201 k/mm3 (150-450); RED CELL DISTRIBUTION WIDTH 12.7 % (11.5-14.5); WHITE BLOOD COUNT 6.7 K/mm3 (4.0-10.0)
[2016-08-15 21:20] VITALS: BP 117/63
--- NOTE | 2016-08-15 21:41 | RO ---
DATE OF PROCEDURE: 08/15/2016 PREOPERATIVE DIAGNOSIS: Retained products of conception versus hematometra, (status post elective termination of on 08/10/16 at approximately 10 weeks gestation) POSTOPERATIVE DIAGNOSIS: Retained products of conception versus hematometra, (status post elective termination of on 08/10/16 at approximately 10 weeks gestation) PROCEDURE PERFORMED: Suction dilation and curettage (D and C). FINDINGS: Minimal amount of products of conception/intrauterine tissue removed. Tissue was admixed with a moderate amount of blood clot. SURGEON: William Salazar DO HAT STEAMER: None. ANESTHESIA: General via laryngeal mask airway (LMA). SPECIMENS SENT TO PATHOLOGY: Intrauterine tissue. ESTIMATED BLOOD LOSS: 100 mL FLUIDS REPLACED: 600 mL lactated Ringers. DRAINS: In and out catheter. 150 mL of urine output. COMPLICATIONS: None. PERIOPERATIVE ANTIBIOTIC: Doxycycline 100 mg IV x1. INDICATIONS: The patient is a 30-year-old G5, P2-0-3-2. She recently underwent an elective termination of via suction curettage at an outpatient facility. This was done on August 10, 2016. Since then, the patient has had a significant amount of uterine pain. However, she does not complain of heavy bleeding. She was evaluated in the emergency room approximately 2 days (08/13/16) ago and a pelvic ultrasound was performed. The pelvic ultrasound showed possible evidence of retained tissue, although the endometrial stripe was only approximately 2 cm in greatest dimension. She was given vaginal Cytotec 800 mcg to help evacuate the remainder of the possible retained tissue. However, the patient did not have any significant amount of bleeding or passage of tissue after using this medication. She returned to the ER this afternoon with complaints of continued uterine pain. She denied any fevers of chills, myalgias and her white blood cell count/CBC in the ER was normal. Repeat ultrasound today revealed similar findings. Given her level of continued pain, the decision was made to proceed with a suction D and C to evacuate the remaining contents in the intrauterine cavity. The patient was counseled and consented on risks, benefits, indications and alternatives of a suction D and C under general anesthesia. Informed consent was obtained and signed. DESCRIPTION OF PROCEDURE: The patient was brought to the operating room with an IV running. She was placed on operating table in the dorsal supine position where general anesthesia was administered and secured without any difficulty. She was placed in the low lithotomy position. She was prepared and draped in normal sterile fashion. Time-out was performed per protocol. Sterile catheter was used to drain the bladder. A sterile speculum was placed with good visualization of the cervix. The cervix was grasped with single-tooth tenaculum; downward traction was applied. The cervix was then sequentially dilated with Roger dilators up to #20. A size 7 vacuum curette was placed transcervically into the intrauterine cavity and suction was applied. Suction was applied until there was minimal tissue and blood return. After placement of the vacuum curette, the vacuum curette was removed and a sharp curette was placed transcervical into the intrauterine cavity. Sharp curettage was performed throughout each quadrant of the intrauterine cavity until gritty texture was noted throughout. Minimal blood and tissue return was noted. An additional pass of the Vacuum curette revealed minimal blood and tissue return. The single-tooth tenaculum was removed. The tenaculum sites were cauterized with silver nitrate. Minimal bleeding from the cervical os was noted. All instruments removed from vagina. Sponge, lap, needle and instrument counts were correct. She was transferred to the post anesthesia care unit (PACU) in good stable condition. CONG
== END ==
LOC: M ED 14:57 → M SDC 17:53
PROVIDERS: ATTEND Obstetrics & Gynecology
DX: O73.1 Retained portions of placenta and membranes, without hemorrhage (principal); J45.909 Unspecified asthma, uncomplicated; F31.9 Bipolar disorder, unspecified; R11.0 Nausea; R51 Headache; Z79.899 Other long term (current) drug therapy; F17.210 Nicotine dependence, cigarettes, uncomplicated; Z88.1 Allergy status to other antibiotic agents; Z91.040 Latex allergy status
CPT/HCPCS: 59812; 76830; 76856; 84702; 85025; 86850; 86900; 86901; 88305; 93976; 96372; 96374; 99284; J1885; J2250; J2405; J2765; J3010

== ENCOUNTER → 2016-09-07 | Outpatient (REF) | payer OTHER ==
[~2016-09-07] MED LIST changes: -DOXYCYCLINE HYCLATE 100 MG in D5W MINI-BAG PLUS 100 ML IV ONE; -DOXYCYCLINE HYCLATE 100 MG/10 ML VIAL As Ordered ONE; -KETOROLAC 60 MG/2 ML VIAL (J1885) As Ordered ONE; -KETOROLAC 60 MG/2 ML VIAL (J1885) IM ONE; -LIDOCAINE 2% INJ 100 MG/5 ML SDV (FOR ANES.) As Ordered ONE; -LR 1,000 ML IV SCH; -METOCLOPRAMIDE INJ 10MG/2ML VIAL (J2765) As Ordered ONE; -MIDAZOLAM INJ 2 MG/2 ML VIAL (J2250) As Ordered ONE; -MORPHINE 10 MG/ML 1ML VIAL As Ordered ONE; -MORPHINE 10 MG/ML 1ML VIAL IV ONE; -MORPHINE 4 MG/ML 1ML SYRINGE IV ONE; -ONDANSETRON 4 MG ORAL DISINTEGRATING TAB (S0181) PO ONE; -ONDANSETRON 4MG/2ML VIAL (J2405) As Ordered ONE; -ONDANSETRON 4MG/2ML VIAL (J2405) IV ONE; -ONDANSETRON 4MG/2ML VIAL (J2405) IV PRN; -PROPOFOL 200 MG/20 ML VIAL As Ordered ONE; -ROCURONIUM BROMIDE 50 MG/5 ML VIAL As Ordered ONE; -SEVOFLURANE INHAL SOLN 250 ML BTL As Ordered ONE; -SILVER NITRATE APPLICATOR As Ordered ONE; -diphenhydrAMINE 25 MG CAP PO ONE; -fentaNYL 100 MCG/2 ML INJECTION (J3010) As Ordered ONE; -fentaNYL 100 MCG/2 ML INJECTION (J3010) IV PRN
== END ==
LOC: M LAB REF 13:25
PROVIDERS: ATTEND Obstetrics & Gynecology
DX: R87.610 Atypical squamous cells of undetermined significance on cytologic smear of cervix (ASC-US) (principal)

== ENCOUNTER → 2016-09-08 | Outpatient (CLI) | payer OTHER ==
--- NOTE | 2016-09-08 17:38 | REP ---
Chest two views HISTORY: Cough Comparison: 01/10/2014 The lungs are clear. The heart is normal in size. The pulmonary vasculature is normal in appearance. The bony structure is intact. IMPRESSION: No acute disease. Signed by Will Jon MD 09/08/2016 05:29 P
== END ==
LOC: M ADAMS 15:47
PROVIDERS: ATTEND Family Medicine
DX: R04.2 Hemoptysis (principal)

== ENCOUNTER → 2016-09-21 | Outpatient (REF) | payer OTHER ==
[~2016-09-21] MED LIST changes: +BENZ100C5 PO; +GABA800T PO; +LEXA1TAB PO; +SERO1TAB3 PO
== END ==
LOC: M LAB REF 09:00
PROVIDERS: ATTEND Obstetrics & Gynecology
DX: R87.820 Cervical low risk human papillomavirus (HPV) DNA test positive (principal)

== ENCOUNTER 2016-10-06 05:43 | Day surgery (SDC) | payer OTHER ==
[2016-10-06] VITALS (7 sets, daily range): BP systolic 105–108; BP diastolic 55–69
[~2016-10-06] VITALS: Ht 162.6 cm; Wt 63.5 kg
[2016-10-06] MEDS ORDERED: LR 1,000 ML IV SCH ×3 (06:00→11:15)
[2016-10-06] MEDS ORDERED: LIDOCAINE 1% SDV 5 ML VIAL SQ ONE (06:00)
[2016-10-06 06:09] LABS: MEAN CORPUSCULAR HEMOGLOBIN 30.6 pg (27.0-33.0); MEAN CORPUSCULAR HGB CONC 32.8 g/dl (32.0-36.5); MEAN CORPUSCULAR VOLUME 93.3 fl (80.0-96.0); RED CELL DISTRIBUTION WIDTH 13.1 % (11.5-14.5); WHITE BLOOD COUNT 6.2 K/mm3 (4.0-10.0)
[2016-10-06] MEDS ORDERED: GABA-282 PO (06:14)
[2016-10-06 06:27] LABS: CONTROL LINE HCG INT CTR LINE PRESENT
[2016-10-06] MEDS ORDERED: LIDOCAINE 2% INJ 100 MG/5 ML SDV (FOR ANES.) As Ordered ONE (07:08)
[2016-10-06] MEDS ORDERED: PROPOFOL 200 MG/20 ML VIAL As Ordered ONE (07:08)
[2016-10-06] MEDS ORDERED: ONDANSETRON 4MG/2ML VIAL (J2405) As Ordered ONE (07:08)
[2016-10-06] MEDS ORDERED: ROCURONIUM BROMIDE 50 MG/5 ML VIAL As Ordered ONE ×2 (07:08→08:41)
[2016-10-06] MEDS ORDERED: fentaNYL 100 MCG/2 ML INJECTION (J3010) As Ordered ONE ×2 (07:09→08:40)
[2016-10-06] MEDS ORDERED: MIDAZOLAM INJ 2 MG/2 ML VIAL (J2250) As Ordered ONE (07:09)
[2016-10-06] MEDS ORDERED: SILVER NITRATE APPLICATOR As Ordered ONE (07:10)
[2016-10-06] MEDS ORDERED: METHYLENE BLUE 0.5% (5MG/ML) 10 ML AMP (PROVAYBLUE)(Q9968 PER 1MG) As Ordered ONE (07:10)
[2016-10-06] MEDS ORDERED: BUPIVACAINE HCL 0.25% 30 ML VIAL As Ordered ONE (07:10)
[2016-10-06] MEDS ORDERED: ALBUTEROL SULFATE 2.5 MG/0.5 ML INH NEB SOLN As Ordered ONE (07:17)
[2016-10-06] MEDS ORDERED: ALBUTEROL SULFATE 2.5 MG/0.5 ML INH NEB SOLN INH ONE (07:30)
[2016-10-06] MEDS ORDERED: dexameTHASONE 4 MG/ML 1ML VIAL (J1100) As Ordered ONE (08:16)
[2016-10-06] MEDS: DOCUSATE SODIUM 100 MG CAP PO SCH ×2 (09:00→19:51)
[2016-10-06] MEDS ORDERED: GLYCOPYRROLATE INJ 0.2 MG/ML 2 ML VIAL As Ordered ONE ×2 (09:01→10:15)
[2016-10-06] MEDS ORDERED: HYDROmorphone HCL 2 MG/ML 1ML VIAL (J1170) As Ordered ONE (09:39)
[2016-10-06] MEDS ORDERED: NEOSTIGMINE 1MG/ML 5 ML SYRINGE (J2710) As Ordered ONE (10:15)
[2016-10-06] MEDS ORDERED: PROMETHAZINE INJ 25 MG/ML VIAL (J2550) IV PRN (10:45)
[2016-10-06] MEDS ORDERED: PERCOCET 5MG/325MG TAB PO PRN (10:45)
[2016-10-06] MEDS ORDERED: KETOROLAC 30 MG/ML VIAL (J1885) IV SCH (10:45)
[2016-10-06] MEDS ORDERED: ONDANSETRON 4MG/2ML VIAL (J2405) IV PRN ×2 (10:45→11:15)
[2016-10-06] MEDS ORDERED: MORPHINE 4 MG/ML 1ML SYRINGE IV PRN (11:00)
[2016-10-06] MEDS: KETOROLAC 30 MG/ML VIAL (J1885) IV SCH ×3 (11:00→23:16)
[2016-10-06] MEDS ORDERED: MORPHINE 10 MG/ML 1ML VIAL As Ordered ONE (11:03)
[2016-10-06] MEDS: MORPHINE 2 MG/ML 1ML SYRINGE IV PRN ×3 (11:07→11:33)
[2016-10-06] MEDS ORDERED: fentaNYL 100 MCG/2 ML INJECTION (J3010) IV PRN (11:15)
[2016-10-06] MEDS: PERCOCET 5MG/325MG TAB PO PRN ×3 (11:18→19:50)
[2016-10-06] MEDS: LR 1,000 ML IV SCH ×2 (14:41→18:38)
[2016-10-06] MEDS ORDERED: OXYC1TAB23 PO (18:11)
[2016-10-06] MEDS ORDERED: ZOFR20TA PO (18:13)
[2016-10-06] MEDS ORDERED: IBUP600T26 PO (18:13)
[2016-10-06] MEDS ORDERED: COLA100C3 PO (18:14)
[2016-10-06] MEDS: lamoTRIgine 100MG TAB PO SCH (19:50)
[2016-10-06] MEDS: SIMETHICONE 80 MG CHEW TAB PO PRN (19:51)
[2016-10-06] MEDS: GABAPENTIN 400 MG CAP PO SCH (19:51)
[2016-10-06] MEDS ORDERED: ESCITALOPRAM OXALATE 10 MG TAB (LEXAPRO) PO SCH (21:00)
[2016-10-06] MEDS ORDERED: lamoTRIgine 100MG TAB PO SCH (21:00)
[2016-10-07 02:00] VITALS: BP 102/57
[2016-10-07] MEDS: LR 1,000 ML IV SCH (05:39)
[2016-10-07] MEDS: KETOROLAC 30 MG/ML VIAL (J1885) IV SCH (05:40)
[2016-10-07] MEDS: PERCOCET 5MG/325MG TAB PO PRN ×2 (05:40→10:50)
[2016-10-07] MEDS: SIMETHICONE 80 MG CHEW TAB PO PRN ×2 (05:40→10:50)
[2016-10-07 06:00] VITALS: BP 109/55
[2016-10-07 06:20] LABS: BASO % 0.1 % (0.0-1.0); EOS # 0.1 K/mm3 (0.0-0.50); LARGE UNSTAINED CELL # 0.1 K/mm3 (0.0-0.4); LARGE UNSTAINED CELL % 1.4 % (0.0-4.0); LYMPH % 27.7 % (24.0-44.0); MEAN CORPUSCULAR HGB CONC 33.6 g/dl (32.0-36.5); MEAN CORPUSCULAR VOLUME 92.2 fl (80.0-96.0); MONO # 0.4 K/mm3 (0.0-0.8); MONO % 5.5 % (0.0-5.0); NEUTROPHILS # 4.7 K/mm3 (1.8-7.7); NEUTROPHILS % 64.2 % (36.0-66.0); PLATELET COUNT, AUTOMATED 135 k/mm3 (150-450); WHITE BLOOD COUNT 7.4 K/mm3 (4.0-10.0)
[2016-10-07] MEDS: DOCUSATE SODIUM 100 MG CAP PO SCH (09:14)
[2016-10-07] MEDS: GABAPENTIN 400 MG CAP PO SCH (09:14)
[2016-10-07] MEDS: lamoTRIgine 100MG TAB PO SCH (09:14)
[2016-10-07] MEDS ORDERED: MYLI40DR PO (10:26)
[2016-10-07] MEDS ORDERED: IBUPROFEN 800 MG TAB PO SCH (13:00)
== END 2016-10-07 11:25 | disposition home or self-care (01) ==
LOC: M SDC 05:43 → M MS5PR 12:40 → M SDC 10-07 11:25
PROVIDERS: ATTEND Obstetrics & Gynecology
DX: N87.9 Dysplasia of cervix uteri, unspecified (principal); R10.2 Pelvic and perineal pain; J45.909 Unspecified asthma, uncomplicated; M32.9 Systemic lupus erythematosus, unspecified; G89.29 Other chronic pain; D64.9 Anemia, unspecified; F41.9 Anxiety disorder, unspecified; F31.9 Bipolar disorder, unspecified; F17.210 Nicotine dependence, cigarettes, uncomplicated; Z79.899 Other long term (current) drug therapy; Z88.1 Allergy status to other antibiotic agents; Z91.040 Latex allergy status

== ENCOUNTER → 2016-11-03 | Outpatient (REF) | payer OTHER ==
[~2016-11-03] MED LIST changes: +COLA100C3 PO; +MYLI40DR PO; +ZOFR20TA PO
== END ==
LOC: M SFHCADAM 16:53
PROVIDERS: ATTEND Family Medicine
DX: M79.89 Other specified soft tissue disorders (principal)

== ENCOUNTER → 2017-01-08 | Outpatient (REF) | payer OTHER ==
[~2017-01-08] MED LIST changes: -CELE-19 PO; +CELE1CAP4 PO; -COLA100C3 PO; +COLA100C5 PO; +FLAG500T PO; +HYDR-3363 PO; -HYDR25T PO; +IBUP-1022 PO; +IBUP1TAB7 PO; -IBUP600T26 PO; -IBUP800T23 PO; -MACR100C3 PO; +MACR100C43 PO; +PAXI10TA12 PO; -PAXI10TA2 PO
== END ==
LOC: M LAB REF 18:52
PROVIDERS: ATTEND Family Medicine
DX: R32 Unspecified urinary incontinence (principal)

== ENCOUNTER 2017-02-26 17:18 | Emergency (ER) | payer OTHER ==
[~2017-02-26] VITALS: Ht 162.6 cm; Wt 54.4 kg
[~2017-02-26 17:18] MED LIST changes: -FLAG500T PO
[2017-02-26] MEDS ORDERED: NS 1,000 ML IV ONE (18:15)
[2017-02-26] MEDS ORDERED: ONDANSETRON 4MG/2ML VIAL (J2405) IV ONE (18:15)
[2017-02-26] MEDS: MORPHINE 4 MG/ML 1ML SYRINGE IV PRN ×2 (19:11→21:01)
[2017-02-26 19:15] LABS: BASO % 0.4 % (0.0-1.0); EOS # 0.1 10^3/uL (0.0-0.50); EOS % 1.7 % (0.0-3.0); IMMATURE GRANULOCYTE % 0.4 % (0-0); LYMPH # 2.2 10^3/uL (1.5-4.5); LYMPH % 42.2 % (24.0-44.0); MEAN CORPUSCULAR HEMOGLOBIN 31.4 pg (27.0-33.0); MEAN CORPUSCULAR HGB CONC 34.2 g/dl (32.0-36.5); MEAN CORPUSCULAR VOLUME 91.9 fl (80.0-96.0); MONO # 0.4 10^3/uL (0.0-0.8); MONO % 6.8 % (0.0-5.0); NEUTROPHILS # 2.6 10^3/uL (1.8-7.7); NEUTROPHILS % 48.5 % (36.0-66.0); PLATELET COUNT, AUTOMATED 166 10^3/uL (150-450); RED CELL DISTRIBUTION WIDTH 13.5 % (11.5-14.5); WHITE BLOOD COUNT 5.3 10^3/uL (4.0-10.0)
[2017-02-26 19:45] LABS: ANION GAP 7 MEQ/L (8-16); BLOOD UREA NITROGEN 8 MG/DL (7-18); CALCIUM LEVEL 8.4 MG/DL (8.5-10.1); CARBON DIOXIDE LEVEL 27 MEQ/L (21-32); CHLORIDE LEVEL 107 MEQ/L (98-107); CREATININE FOR GFR 0.86 MG/DL (0.55-1.02); GLOMERULAR FILTRATION RATE > 60.0 (>60); GLUCOSE, FASTING 76 MG/DL (70-105); POTASSIUM SERUM 3.7 MEQ/L (3.5-5.1); SODIUM LEVEL 141 MEQ/L (136-145)
[2017-02-26] MEDS ORDERED: MORPHINE 4 MG/ML 1ML SYRINGE IV ONE (21:00)
--- NOTE | 2017-02-26 21:10 | REPUSA ---
Clinical history: Pain. Findings: Real-time transabdominal and transvaginal ultrasound images of the pelvis were obtained. Th e patient is status post hysterectomy. The right ovary measures 2.4 x 1.9 x 2.6 cm. The left ovary me asures 2.0 .6 x 1.9 cm. No adnexal masses are seen. Color Doppler flow is seen within both ovaries. T he urinary bladder measures 3.4 x 2.8 x 6.8 cm and is unremarkable. There is no evidence of free flui d. Impression: Unremarkable ultrasound examination of the pelvis.
[2017-02-26] MEDS ORDERED: FLAG500T PO (21:26)
[2017-02-26] MEDS ORDERED: metroNIDAZOLE (FLAGYL) 500 MG TAB PO ONE (21:30)
[2017-02-26] MEDS ORDERED: OXYCODONE/APAP 5MG/325MG(BULK FOR ED) 1 TABLET PO ONE (21:30)
[2017-02-26 21:46] VITALS: BP 112/62
== END 2017-02-26 21:54 | disposition home or self-care (01) ==
LOC: M ED 17:18
DX: N76.0 Acute vaginitis (principal); Z72.0 Tobacco use
CPT/HCPCS: 76830; 76856; 80048; 81001; 85025; 87210; 87491; 87591; 93976; 96374; 96375; 96376; 99283; J2405

== ENCOUNTER 2017-03-30 13:06 | Emergency (ER) | payer OTHER ==
[~2017-03-30] VITALS: Ht 162.6 cm; Wt 54.5 kg
[~2017-03-30 13:06] MED LIST changes: +FLAG500T PO
[2017-03-30] MEDS ORDERED: NS 1,000 ML IV ONE (14:00)
[2017-03-30] MEDS ORDERED: PANTOPRAZOLE SODIUM 40 MG in D5W 50 ML IV SCH (14:00)
[2017-03-30] MEDS ORDERED: ONDANSETRON 4MG/2ML VIAL (J2405) IV ONE (14:00)
[2017-03-30 14:12] LABS: BASO % 0.6 % (0.0-1.0); EOS # 0.1 10^3/uL (0.0-0.50); EOS % 1.8 % (0.0-3.0); IMMATURE GRANULOCYTE % 0.2 % (0-0); LYMPH # 1.9 10^3/uL (1.5-4.5); LYMPH % 36.4 % (24.0-44.0); MEAN CORPUSCULAR HEMOGLOBIN 31.1 pg (27.0-33.0); MEAN CORPUSCULAR HGB CONC 32.9 g/dl (32.0-36.5); MEAN CORPUSCULAR VOLUME 94.3 fl (80.0-96.0); MONO # 0.4 10^3/uL (0.0-0.8); MONO % 7.6 % (0.0-5.0); NEUTROPHILS # 2.7 10^3/uL (1.8-7.7); NEUTROPHILS % 53.4 % (36.0-66.0); PLATELET COUNT, AUTOMATED 181 10^3/uL (150-450); RED CELL DISTRIBUTION WIDTH 13.2 % (11.5-14.5); WHITE BLOOD COUNT 5.1 10^3/uL (4.0-10.0)
[2017-03-30 14:29] LABS: CONTROL LINE HCG INT CTR LINE PRESENT
[2017-03-30 14:36] LABS: ANION GAP 6 MEQ/L (8-16); BLOOD UREA NITROGEN 9 MG/DL (7-18); CALCIUM LEVEL 9.2 MG/DL (8.5-10.1); CARBON DIOXIDE LEVEL 30 MEQ/L (21-32); CHLORIDE LEVEL 106 MEQ/L (98-107); CREATININE FOR GFR 0.82 MG/DL (0.55-1.02); GLOMERULAR FILTRATION RATE > 60.0 (>60); GLUCOSE, FASTING 83 MG/DL (70-105); MAGNESIUM LEVEL 2.3 MG/DL (1.8-2.4); POTASSIUM SERUM 3.9 MEQ/L (3.5-5.1); SODIUM LEVEL 142 MEQ/L (136-145)
--- NOTE | 2017-03-30 15:15 | REP ---
PORTABLE CHEST: Single view. There is no evidence of acute infiltrate. No pleural effusion is seen. The heart is normal in size. The mediastinal silhouette is unremarkable. The visualized osseous structures are intact. IMPRESSION: No acute pulmonary disease. Signed by Derrick Anthony MD 03/30/2017 03:51 P
[2017-03-30 15:28] LABS: METHADONE URINE NEGATIVE (NEGATIVE)
[2017-03-30 15:45] VITALS: BP 101/57
[2017-03-30] MEDS ORDERED: ZOFR4TAB3 PO (16:03)
--- NOTE | 2017-03-31 08:32 | ECGEPIP ---
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
== END 2017-03-30 16:29 | disposition home or self-care (01) ==
LOC: M ED 13:06
DX: R11.0 Nausea (principal); M32.9 Systemic lupus erythematosus, unspecified; F43.10 Post-traumatic stress disorder, unspecified; F31.9 Bipolar disorder, unspecified; F17.210 Nicotine dependence, cigarettes, uncomplicated; F19.11 Other psychoactive substance abuse, in remission; Z79.899 Other long term (current) drug therapy; Z88.1 Allergy status to other antibiotic agents; Z91.040 Latex allergy status
CPT/HCPCS: 71010; 80048; 80307; 80320; 81001; 83735; 84703; 85025; 93000; 93041; 94760; 96374; 99285; C9113; J2405

== ENCOUNTER → 2017-06-15 | Outpatient (REF) | payer OTHER ==
[2017-06-15 18:00] LABS: HEMATOCRIT 43.8 % (36.0-47.0); HEMOGLOBIN 14.6 g/dl (12.0-16.0); MEAN CORPUSCULAR HEMOGLOBIN 30.9 pg (27.0-33.0); MEAN CORPUSCULAR HGB CONC 33.3 g/dl (32.0-36.5); MEAN CORPUSCULAR VOLUME 92.6 fl (80.0-96.0); PLATELET COUNT, AUTOMATED 165 10^3/uL (150-450); RED BLOOD COUNT 4.73 10^6/uL (4.00-5.40); RED CELL DISTRIBUTION WIDTH 12.5 % (11.5-14.5); WHITE BLOOD COUNT 5.9 10^3/uL (4.0-10.0)
[2017-06-15 18:37] LABS: ERYTHROCYTE SEDIMENTATION RATE 2 mm/hr (0-20)
[2017-06-15 18:40] LABS: ALBUMIN 4.5 GM/DL (3.2-5.2); ALBUMIN/GLOBULIN RATIO 1.73 (1.00-1.93); ALKALINE PHOSPHATASE 66 U/L (45-117); ALT/SGPT 17 U/L (12-78); ANION GAP 7 MEQ/L (8-16); AST/SGOT 12 U/L (7-37); BILIRUBIN,TOTAL 0.4 MG/DL (0.2-1.0); BLOOD UREA NITROGEN 16 MG/DL (7-18); CALCIUM LEVEL 8.8 MG/DL (8.5-10.1); CARBON DIOXIDE LEVEL 28 MEQ/L (21-32); CHLORIDE LEVEL 107 MEQ/L (98-107); CREATININE FOR GFR 0.81 MG/DL (0.55-1.30); GLOMERULAR FILTRATION RATE > 60.0 (>60); GLUCOSE, FASTING 80 MG/DL (70-100); POTASSIUM SERUM 3.6 MEQ/L (3.5-5.1); RHEUMATOID FACTOR QUANT < 10.0 IU/ML (0-15.0); SODIUM LEVEL 142 MEQ/L (136-145); TOTAL PROTEIN 7.1 GM/DL (6.4-8.2)
[2017-06-15 18:53] LABS: CHLAMYDIA DNA AMPLIFICATION NEGATIVE (NEGATIVE); GC DNA AMPLIFICATION NEGATIVE (NEGATIVE)
[2017-06-18 10:02] LABS: HEPATITIS B SURFACE ANTIBODY POSITIVE (POSITIVE)
[2017-06-18 10:12] LABS: HEPATITIS B SURFACE ANTIGEN NEGATIVE (NEGATIVE)
[2017-06-18 10:39] LABS: HIV 1&2 SCREEN CENTAUR NEGATIVE (NEGATIVE)
[2017-06-19 00:07] LABS: ANTINUCLEAR ANTIBODIES DIRECT Negative (Negative)
[2017-06-19 00:07] LABS: LAMOTRIGINE (LAMICTAL) 1.3 ug/mL (2.0-20.0)
== END ==
LOC: M SFHCCLAY 11:47
DX: F31.9 Bipolar disorder, unspecified (principal); M25.552 Pain in left hip; Z11.9 Encounter for screening for infectious and parasitic diseases, unspecified

== ENCOUNTER → 2017-07-02 | Outpatient (REF) | payer OTHER ==
[2017-07-02 13:55] LABS: ESTIMATED AVERAGE GLUCOSE 97 MG/DL (60-110)
[2017-07-02 14:11] LABS: RHEUMATOID FACTOR QUANT < 10.0 IU/ML (0-15.0); TOTAL PROTEIN 7.7 GM/DL (6.4-8.2)
[2017-07-02 14:13] LABS: VITAMIN B12 LEVEL 786 PG/ML
[2017-07-02 14:14] LABS: FOLATE 9.6 NG/ML
[2017-07-02 15:08] LABS: ERYTHROCYTE SEDIMENTATION RATE 2 mm/hr (0-20)
[2017-07-03 10:26] LABS: ALBUMIN % 68.3 % (55.8-66.1); ALPHA-1-GLOBULIN % 3.8 % (2.9-4.9); ALPHA-2-GLOBULINS % 10.1 % (7.1-11.8); BETA-1-GLOBULINS % 5.4 % (4.7-7.2); BETA-2-GLOBULINS % 3.2 % (3.2-6.5)
[2017-07-03 10:27] LABS: ALBUMIN 5.26 GM/DL (3.29-5.55); ALPHA-1-GLOBULINS 0.29 GM/DL (0.17-0.41); ALPHA-2-GLOBULINS 0.78 GM/DL (0.42-0.99); BETA-1-GLOBULINS 0.42 GM/DL (0.28-0.60); BETA-2-GLOBULINS 0.25 GM/DL (0.19-0.55); GAMMA GLOBULIN % 9.2 % (11.1-18.8); GAMMA GLOBULINS 0.71 GM/DL (0.65-1.58)
[2017-07-03 14:11] LABS: ANTINUCLEAR ANTIBODIES DIRECT Negative (Negative)
== END ==
LOC: M LABNEURO 10:42
DX: E11.9 Type 2 diabetes mellitus without complications (principal); Z13.29 Encounter for screening for other suspected endocrine disorder
CPT/HCPCS: 82746

== ENCOUNTER 2017-08-28 19:44 | Emergency (ER) | payer OTHER ==
[2017-08-28] MEDS: PREGABALIN 100 MG CAP (LYRICA) PO (21:15)
== END 2017-08-28 21:24 | disposition home or self-care (01) ==
LOC: M ED 19:44
DX: T39.8X5A Adverse effect of other nonopioid analgesics and antipyretics, not elsewhere classified, initial encounter (principal); Y92.9 Unspecified place or not applicable; Y93.9 Activity, unspecified; J45.909 Unspecified asthma, uncomplicated; M32.9 Systemic lupus erythematosus, unspecified; G89.29 Other chronic pain; Z86.59 Personal history of other mental and behavioral disorders; F17.200 Nicotine dependence, unspecified, uncomplicated; Z79.899 Other long term (current) drug therapy; Z88.8 Allergy status to other drugs, medicaments and biological substances; Z88.1 Allergy status to other antibiotic agents; Z91.040 Latex allergy status
CPT/HCPCS: 99283

== ENCOUNTER → 2018-01-04 | Outpatient (REF) | payer OTHER ==
[2018-01-07 13:30] LABS: CHLAMYDIA DNA AMPLIFICATION NEGATIVE (NEGATIVE); GC DNA AMPLIFICATION NEGATIVE (NEGATIVE)
== END ==
LOC: M SFHCCLAY 01-07 11:50
DX: N76.1 Subacute and chronic vaginitis (principal)